=== PATIENT | male | born 1950 | race Caucasian/White ===

== ENCOUNTER → 2018-12-05 | Outpatient (CLI) | payer OTHER | LOC: ULTRA 10:16 | DX: I65.23 Occlusion and stenosis of bilateral carotid arteries (principal); R09.89 Other specified symptoms and signs involving the circulatory and respiratory systems ==

== ENCOUNTER → 2019-11-30 | Outpatient (CLI) | payer OTHER | LOC: SJCVC 11:16 | DX: I45.19 Other right bundle-branch block (principal); R94.31 Abnormal electrocardiogram [ECG] [EKG]; I10 Essential (primary) hypertension; I25.10 Atherosclerotic heart disease of native coronary artery without angina pectoris; E78.00 Pure hypercholesterolemia, unspecified; I65.23 Occlusion and stenosis of bilateral carotid arteries; M19.90 Unspecified osteoarthritis, unspecified site; Z79.82 Long term (current) use of aspirin; Z79.899 Other long term (current) drug therapy ==

== ENCOUNTER → 2020-04-15 | Outpatient (CLI) | payer OTHER | LOC: SJCVCIMAG 10:20 | PROVIDERS: ATTEND Internal Medicine Cardiovascular Disease | DX: I25.10 Atherosclerotic heart disease of native coronary artery without angina pectoris (principal); I45.10 Unspecified right bundle-branch block; E78.5 Hyperlipidemia, unspecified; I10 Essential (primary) hypertension; Z79.899 Other long term (current) drug therapy ==

== ENCOUNTER → 2020-04-24 | Outpatient (CLI) | payer OTHER | END | disposition home or self-care (01) | LOC: CATH 10:28 | DX: I25.10 Atherosclerotic heart disease of native coronary artery without angina pectoris (principal); I77.811 Abdominal aortic ectasia; I10 Essential (primary) hypertension; E78.5 Hyperlipidemia, unspecified; K21.9 Gastro-esophageal reflux disease without esophagitis; M19.90 Unspecified osteoarthritis, unspecified site; Z98.890 Other specified postprocedural states; Z79.899 Other long term (current) drug therapy ==

== ENCOUNTER → 2020-12-04 | Outpatient (CLI) | payer OTHER ==
[~2020-12-04] MED LIST: ASA81BEC PO; AVAPRO300 MG PO; FISH OIL 1,001000 M3 PO; LIPITOR80 MG PO; NEURONTIN300 MG PO; NORCO 10-325 T1 EACH PO; TOPROL XL25 MG PO
== END ==
LOC: SJCVC 11:15
PROVIDERS: ATTEND Internal Medicine Cardiovascular Disease
DX: I25.10 Atherosclerotic heart disease of native coronary artery without angina pectoris (principal); I10 Essential (primary) hypertension; E78.00 Pure hypercholesterolemia, unspecified; I65.23 Occlusion and stenosis of bilateral carotid arteries; M19.90 Unspecified osteoarthritis, unspecified site; Z98.890 Other specified postprocedural states; Z79.82 Long term (current) use of aspirin; Z79.899 Other long term (current) drug therapy; Z82.49 Family history of ischemic heart disease and other diseases of the circulatory system

== ENCOUNTER → 2021-07-16 | Outpatient (CLI) | payer OTHER | LOC: SJCVCIMAG 08:24 | PROVIDERS: ATTEND Internal Medicine Cardiovascular Disease | DX: I25.10 Atherosclerotic heart disease of native coronary artery without angina pectoris (principal); I10 Essential (primary) hypertension; E78.5 Hyperlipidemia, unspecified; Z95.1 Presence of aortocoronary bypass graft ==

== ENCOUNTER 2021-11-27 11:06 | Inpatient (IN) | payer OTHER ==
[~2021-11-27] VITALS: Ht 182.9 cm; Wt 66.7 kg
[2021-11-27] VITALS (14 sets, daily range): BP systolic 95–117; BP diastolic 44–76
[2021-11-27 11:24] LABS: ABSOLUTE NEUTROPHILS 4.3 thou/uL (1.4-8.2); BASOPHILS 0.8 % (0.0-2.0); EOSINOPHILS 2.4 % (0.0-3.0); HEMATOCRIT 29.9 % (42.0-52.0); HEMOGLOBIN 10.1 gm/dL (14.0-18.0); LYMPHOCYTES 18.9 % (24.0-44.0); MCH 32.4 pg (26.0-34.0); MCHC 33.8 g/dL (28.0-37.0); MCV 96.1 fL (80.0-100.0); MONOCYTES 15.2 % (1.0-8.0); PLATELET COUNT 156 thou/uL (150-400); POLYS 62.7 % (36.0-66.0); RBC 3.11 mil/uL (4.50-6.00); RDW 15.1 % (10.5-14.5); WBC 6.8 thou/uL (4.0-11.0)
[2021-11-27 11:34] LABS: CALCIUM 8.4 mg/dL (8.5-10.1); CREATININE 3.8 mg/dL (0.7-1.3); POTASSIUM 4.8 mmol/L (3.5-5.1)
--- NOTE | 2021-11-27 11:35 | EKG ---
[address] [address] ELECTROCARDIOGRAM REPORT Name: NABILA PARRISH Room #: [facility] M.R.#: [id number] Admission: Attend Phys: Discharge: Date of : 48 Report #: [id number] [facility] ED Test Date: 2021-11-27 Test Time: 11:08:34 Pat Name: NABILA PARRISH Department: Room: Gender: Supervisor Forming Department: POOJA : 1950 Requested By: Kiran Kaiser Order Number: [id number] MD: Michel Guillaume Measurements Intervals Morrill Rate: 73 P: -37 UT: 189 QRS: -40 QRSD: 106 T: 75 QT: 402 QTc: 443 Interpretive Statements Sinus rhythm Compared to ECG 04/24/2020 10:48:46 Electronically Signed On 11-27-2021 11:35:22 PLEATING SUPERVISOR by Michel Guillaume [email or web address] <ELECTRONICALLY SIGNED> By: Michel Guillaume MD 11/27/21 1135 1108 1108 Michel Guillaume MD /EPI
[2021-11-27 11:44] LABS: ALBUMIN 2.7 g/dL (3.4-5.0); TOTAL BILIRUBIN 1.8 mg/dL (0.2-1.0); TOTAL PROTEIN 6.1 g/dL (6.4-8.2)
[2021-11-27 14:18] LABS: URINE BLOOD 2+ (Negative); URINE CLARITY CLEAR; URINE COLOR YELLOW; URINE GLUCOSE-RANDOM* NEGATIVE (Negative); URINE KETONES NEGATIVE (Negative); URINE LEUKOCYTES-REFLEX NEGATIVE (Negative); URINE NITRITE-REFLEX NEGATIVE (Negative); URINE PROTEIN (DIPSTICK) 1+ (Negative); URINE SPECIFIC GRAVITY 1.025 (1.005-1.035)
[2021-11-27 14:20] LABS: ICTOTEST (BILI CONFIRMATORY) Negative (Negative); URINE BILIRUBIN NEGATIVE (Negative)
[2021-11-27 14:28] LABS: SQUAMOUS >10 Many /LPF (0-3); URINE WBC-REFLEX 6-15 Few /HPF (0-5)
[2021-11-27 14:29] LABS: COARSE GRANULAR CASTS 0-3 Few /LPF (None Seen); CRYSTALS None Seen /LPF (None Seen); HYALINE CASTS 0-3 Few /LPF (None Seen); URINE RBC 3-10 Few /HPF (NONE SEEN)
--- NOTE | 2021-11-27 14:54 | NUR ---
PATIENT CONSENT OBTAINED FOR CENTRAL LINE INSERTION. ALL QUESTIONS AND CONCERNS WERE ADDRESSED.
--- NOTE | 2021-11-27 15:54 | NUR ---
VAT CONSULTED FOR CVAD. DISCUSSED BENEFITS AND RISK WITH PT, VERBALIZED UNDERSTANDING. RIJ WAS WIDELY PATENT WITH USG. 6FR TL POWER JACC 25CM INSERTED TO 4CM EXTERNAL. PT TOLERATED WELL. STAT CXR ORDERED
--- NOTE | 2021-11-27 16:25 | NUR ---
ATTEMPTED TO CALL ICU POD 2 X2 AT THIS TIME, NO ANSWER
[2021-11-27] MEDS ORDERED: IRBESARTAN300 MG PO (16:56)
[2021-11-27] MEDS ORDERED: METOPROLOL SUCC25 M1 PO (16:56)
[2021-11-27] MEDS ORDERED: NEURONTIN 300M300 M2 PO (16:56)
[2021-11-27] MEDS ORDERED: ATORVASTATIN CA80 MG PO (16:56)
[2021-11-27 18:39] LABS: FOLIC ACID 3.2 ng/mL (8.6-58.9)
--- NOTE | 2021-11-27 19:04 | NUR ---
CXR CONFIRMED PLACEMENT. CVAD RELEASED FOR IMMEDIATE USE PER PROTOCOL
[2021-11-27 19:09] LABS: % SATURATION 53 % (20-39); IRON 74 ug/dL (65-175); TIBC 139 ug/dL (250-450)
--- NOTE | 2021-11-27 19:40 | NUR ---
PT HAS SMALL BLANCHABLE REDNESS TO COCCYX. PICTURE IN CHART. EDUCATED TO TURN FREQUENTLY, AT LEAST EVERY 2 HOURS IN THE BED
[2021-11-28] VITALS (75 sets, daily range): BP systolic 77–128; BP diastolic 44–77
[2021-11-28 05:48] LABS: CALCIUM 8.4 mg/dL (8.5-10.1); MAGNESIUM 2.4 mg/dL (1.8-2.4); POTASSIUM 5.1 mmol/L (3.5-5.1)
[2021-11-28 05:49] LABS: BASOPHILS 1.1 % (0.0-2.0); EOSINOPHILS 2.4 % (0.0-3.0); HEMATOCRIT 28.5 % (42.0-52.0); HEMOGLOBIN 9.9 gm/dL (14.0-18.0); LYMPHOCYTES 14.5 % (24.0-44.0); MCHC 34.6 g/dL (28.0-37.0); MCV 95.5 fL (80.0-100.0); PLATELET COUNT 172 thou/uL (150-400); RBC 2.99 mil/uL (4.50-6.00); RDW 15.1 % (10.5-14.5); WBC 7.2 thou/uL (4.0-11.0)
[2021-11-28 05:50] LABS: CREATININE 2.6 mg/dL (0.7-1.3)
--- NOTE | 2021-11-28 11:10 | NUR ---
REFER TO OT VARIANCE
[2021-11-29] VITALS (74 sets, daily range): BP systolic 83–123; BP diastolic 41–66
--- NOTE | 2021-11-29 00:33 | 2DMMODE ---
[facility] [place] [address] 2 D/M-MODE ECHOCARDIOGRAM Name: NABILA PARRISH Room #: 243-P ADM IN M.R.#: [id number] Admission: 11/27/21 Attend Phys: Prince Rayo MD Discharge: Date of : 48 Report #: [id number] THIS REPORT FOR: cc: Ross Rhodes MD, Michael S. MD Lammoglia, Francisco J. MD ~ APPROVED REPORT Study performed: 11/28/2021 09:28:31 EXAM: Comprehensive 2D, Doppler, and color-flow Echocardiogram Patient Location: ICU Room #: 243 Status: on-call BSA: 1.88 HR: 83 bpm BP: 100/48 mmHg Rhythm: NSR/arrhythmia Other Information Study Quality: Adequate Indications Dyspnea Hx: CAD, PCI, HTN, HLP. 2D Dimensions RVDd: 26.19 mm IVSd: 8.37 (7-11mm) LVDd: 41.76 mm PWd: 9.30 (7-11mm) LVDs: 30.91 (25-40mm) Left Atrium: 28.53 (27-40mm) Aortic Root: 36.21 mm Volumes Left Atrial Volume (Systole) Single Plane 4CH: 23.89 mL Single Plane 2CH: 45.93 mL LA ESV Index: 19.00 mL/m2 Aortic Valve AoV Peak Octavio.: 1.22 m/s AO Peak Gr.: 5.99 mmHg LVOT Max P.01 mmHg LVOT Max V: 0.87 m/s [facility] X[employer] [address] [place] [address] 2 D/M-MODE ECHOCARDIOGRAM Name: FRANCOISNABILA DYE Room #: 243-P [facility] IN M.R.#: [id number] Admission: 11/27/21 Attend Phys: Prince Rayo, Discharge: Date of : 48 Report #: [id number] Mitral Valve E/A Ratio: 0.7 MV Decel. Time: 337.08 ms MV E Max Octavio.: 0.54 m/s MV A Octavio.: 0.75 m/s MV PHT: 97.75 ms IVRT: 92.27 ms Tricuspid Valve TR Peak Octavio.: 2.53 m/s TR Peak Gr.: 26.00 mmHg Left Ventricle The left ventricle is normal size. There is normal LV segmental wall motion. There is normal left ventricular wall thickness. Left ventricular systolic function is normal. LVEF is 60-65%. Mild diastolic dysfunction is present (impaired relaxation pattern). Right Ventricle The right ventricle is normal size. The right ventricular systolic function is normal. Atria The left atrium size is normal. The right atrium size is normal. Aortic Valve The aortic valve is normal in structure; mildly calcified. No aortic regurgitation is present. There is no aortic valvular stenosis. Mitral Valve The mitral valve is normal in structure. Trace mitral regurgitation. Tricuspid Valve The tricuspid valve is normal in structure. Trace tricuspid regurgitation. Estimated PAP is 26mmHg plus the right atrial pressure. Pulmonic Valve Pulmonic valve is not well visualized. Great Vessels [facility] [address] [place] [address] 2 D/M-MODE ECHOCARDIOGRAM Name: NABILA PARRISH Room #: 243-P [facility] IN ..#: [id number] Admission: 11/27/21 Attend Phys: Prince Rayo, Discharge: Date of : 48 Report #: [id number] The aortic root is normal in size. Ascending aorta is not well visualized. IVC is not well visualized. Pericardium There is no pericardial effusion. <Conclusion> The left ventricle is normal size. LVEF is 60-65%. The right ventricle is normal size. The left atrium size is normal. The aortic valve is normal in structure; mildly calcified. The mitral valve is normal in structure. Trace mitral regurgitation. The tricuspid valve is normal in structure. Trace tricuspid regurgitation. Estimated PAP is 26mmHg plus the right atrial pressure. Pulmonic valve is not well visualized. The aortic root is normal in size. There is no pericardial effusion. <ELECTRONICALLY SIGNED> By: Berto Marsh MD 11/29/21 0033 003 0033 Berto Marsh MD /INF
[2021-11-29 10:36] LABS: ALBUMIN 2.4 g/dL (3.4-5.0); CALCIUM 7.9 mg/dL (8.5-10.1); CREATININE 1.9 mg/dL (0.7-1.3); PHOSPHORUS 2.7 mg/dL (2.5-4.9); POTASSIUM 4.6 mmol/L (3.5-5.1)
[2021-11-30] VITALS (107 sets, daily range): BP systolic 68–114; BP diastolic 41–64
[2021-11-30 11:02] LABS: HEMATOCRIT 24.7 % (42.0-52.0); HEMOGLOBIN 8.3 gm/dL (14.0-18.0); MCH 32.3 pg (26.0-34.0); MCHC 33.7 g/dL (28.0-37.0); MCV 95.7 fL (80.0-100.0); RBC 2.59 mil/uL (4.50-6.00); RDW 15.2 % (10.5-14.5); WBC 5.8 thou/uL (4.0-11.0)
[2021-11-30 11:44] LABS: ALBUMIN 2.1 g/dL (3.4-5.0); CREATININE 1.4 mg/dL (0.7-1.3); PHOSPHORUS 2.4 mg/dL (2.6-4.7); POTASSIUM 4.4 mmol/L (3.5-5.1)
--- NOTE | 2021-11-30 14:41 | NUR ---
71-year-old male with a history of HTN, CAD, cardiac stents x3, history. Patient arrived to [facility] ED via EMS with complaint of general weakness and debility. Patient reports his weakness started about 3 weeks ago and has gotten worse. Patient reports poor appetite, shortness of air and chest pain. CT of abdomen showed urinary bladder distention, suggesting possible acute urinary retention, findings suggestive for possible cholecystitis, and has Goodman Cath placed. Low BP and was placed on Levo . Currently levo discontinued and started on Midodrine. Discussed during unit rounds with the pulmonary MD and during los with the attending physician. Possible going for heart Cath tomorrow. CM spoke with patient spouse Comfort # [phone] and son Gonzalez # [phone]. Gonzalez is staying with his mom while patient in the hospital. Patient has another son Sravan Boland # [phone], if cant reach patients his or son Gonzalez. Education on discharge planning, home health and rehab. Patient lives at home with Comfort, has stairs at home. Independent prior to his falls recently, bought him a fww. Manage own medication and drives a vehicle. No hh or rehab in the past. PCP Dr Rhodes. Will con,t following as needed, will need to see how patient does working with therapy when he is medical stable for therapy.
--- NOTE | 2021-11-30 14:52 | NUR ---
PT WHEN SITTING AT EDGE OF BED WITH OT PT HAD HAD SOME ORTHOSTATIC HYPOTENSION 68/[address] BACK IN BED BP 94/51. PT PLACE IN A SEMI HAMILTON POSITION AND BP WAS MAINTAINED.
[2021-12-01] VITALS (35 sets, daily range): BP systolic 79–109; BP diastolic 44–61
[2021-12-01 04:33] LABS: HEMATOCRIT 25.3 % (42.0-52.0); HEMOGLOBIN 8.4 gm/dL (14.0-18.0); RBC 2.61 mil/uL (4.50-6.00); WBC 6.9 thou/uL (4.0-11.0)
[2021-12-01 04:42] LABS: ALBUMIN 2.1 g/dL (3.4-5.0); CALCIUM 7.6 mg/dL (8.5-10.1); CREATININE 1.3 mg/dL (0.7-1.3); POTASSIUM 4.3 mmol/L (3.5-5.1); TOTAL BILIRUBIN 1.3 mg/dL (0.2-1.0)
[2021-12-02 04:00] VITALS: BP 115/68
--- NOTE | 2021-12-02 04:39 | NUR ---
NURSING NOTE; SHIFT SUMMARY: PT ALERT AND ORIENTED X3; MOVES ALL EXTREMITIES AND FOLLOWS COMMANDS. CURRENTLY RESTING WITH EYES CLOSED, RESP EVEN AND NON LABORED. DENIES PAIN. ALL VS AND ASSESSMENTS CHARTED. WILL CONTINUE TO MONITOR.
[2021-12-02 07:31] VITALS: BP 121/76
[2021-12-02 09:25] LABS: HEMATOCRIT 24.8 % (42.0-52.0); HEMOGLOBIN 8.3 gm/dL (14.0-18.0); MCH 32.6 pg (26.0-34.0); MCHC 33.6 g/dL (28.0-37.0); MCV 96.8 fL (80.0-100.0); RBC 2.56 mil/uL (4.50-6.00); RDW 15.5 % (10.5-14.5); WBC 6.5 thou/uL (4.0-11.0)
[2021-12-02 09:39] LABS: ALBUMIN 2.2 g/dL (3.4-5.0); CALCIUM 7.7 mg/dL (8.5-10.1); CREATININE 1.1 mg/dL (0.7-1.3); POTASSIUM 3.7 mmol/L (3.5-5.1); TOTAL PROTEIN 5.2 g/dL (6.4-8.2)
[2021-12-02 11:52] VITALS: BP 112/70
[2021-12-02 15:29] VITALS: BP 89/54
--- NOTE | 2021-12-02 16:21 | CATHLAB ---
[facility] [address] [place] [address] INVASIVE PROCEDURE REPORT Name: NABILA PARRISH Room #: 216-P ADM IN M.R.#: [id number] Admission: 11/27/21 Attend Phys: Prince Rayo MD Discharge: Date of : 48 Report #: [id number] THIS REPORT FOR: cc: Ross Rhodes MD, Michael S. MD Mancuso, Gerald M. MD [facility] ~ APPROVED REPORT Study performed: 12/01/2021 08:27:39 Patient Details Patient Status: In-Patient Room #: 243 The patient is a 71 year-old male Event Personnel Ab Phillips Affiliate Marketing Coordinator, Elizabeth Huerta RTR Monitor, Riley Wilks RTR ScrubBakari Mitch RN RN, Chato Francois RN data collection technician Performed Art Access - R femoral artery* Souleymane Access - R femoral vein Right and Left Heart Cath w/or w/o Coronarie [id number] [facility] Aortogram Abdominal Peripheral Angio 561093 Hemostasis w/ Mynx Hemostasis with Manual pressure 80419 Initial Mod Sed Same Phys/QHP Gr5y 933041 34242 Mod Sed Same Phys/QHP Ea 130367 Procedure Narrative The Right Groin^ was infiltrated with 1% Lidocaine subcutaneous anesthesia. A PINNACLE 6FR Sheath #[id number] sheath was inserted into the RFA. Coronary angiography was performed using coronary diagnostic catheters. The right coronary system was accessed and visualized with a JR4 catheter. The left coronary system was accessed and visualized with a JL4 catheter. The left ventricle was accessed and visualized with a PIGTAIL catheter. Left ventriculogram was performed in 30 degree projection. An aortogram of the abdominal aorta was performed. Pre-demployment femoral angiogram was performed . Closure device was deployed with a Fr MYNXGRIP 6/7F #[id number]. The patient tolerated the procedure well and there were no complications associated with the procedure. There was no hematoma. Intraoperative Conscious Sedation Sedation start time: 8:35 Case end Time: 9:10 Fentanyl 25 mcg Versed [address] [address] INVASIVE PROCEDURE REPORT Name: NABILA PARRISH Room #: 216-P [facility] IN ..#: [id number] Admission: 11/27/21 Attend Phys: Prince Rayo, Discharge: Date of : 48 Report #: [id number] Fluoro Time: 3.00 minutes Dose: DAP 2179.20 cGycm2 201 mGy Contrast Type and Amount: Visipaque 90 ml Hemodynamics The right atrial mean pressure is 6 mmHg. The right ventricular pressure is 30/-3 mmHg. The pulmonary artery pressure is 31/11 mmHg with a mean of 17 mmHg. The mean pulmonary capillary wedge pressure is 10 mmHg. The aortic pressure is 107/48 mmHg with a mean of 53 mmHg. The left ventricular pressure is 101/-1 mmHg with a mean of mmHg. The left ventricular end diastolic pressure is 10 mmHg. The cardiac output using thermo method is 4.25 L/min. The cardiac index using thermo method is 2.27 L/min/m2. Conclusion #1 Successful right heart catheterization with cardiac output by thermodilution. See above hemodynamics. #2 normal left ventricular size and systolic function EF 60%. #3 abdominal aortogram shows significant tortuosity of the abdominal aorta but no aneurysm. #4 left main with mild irregularity giving rise to LAD and circumflex. #5 LAD with proximal calcification and mild to moderate diffuse disease a smaller atretic vessel at the apex. But no high-grade occlusive disease for intervention. #6 circumflex OM nondominant with mild disease. #7 dominant right coronary artery with multiple areas of proximal and mid vessels prior stenting widely patent. There is a distal eccentric lesion of 60 to 70% proximal to the bifurcation of the PDA GUERA which are preserved. This does not appear flow-limiting and not recommending intervention at this time. Will follow noninvasively. Recommendations and plan: Continue aggressive risk factor modification there is no indication for coronary intervention. Will follow for inferior wall ischemia. Patient significantly anemic on this hospitalization. No indication for intervention currently. <ELECTRONICALLY SIGNED> By: Ab Phillips MD, FACC 12/02/211620 20 20 Ab Phillips MD, FACC /INF
--- NOTE | 2021-12-02 16:31 | NUR ---
CHART REVIEWED AND DISCUSSED WITH CARE TEAM. CM CALLED TO SPEAK TO PTS FRANK VIA PHONE. FRANK INSTUCTED SHE JUST GOT OFF THE PHONE WITH THERAPY WHO INDICATED PT REMAINS UNABLE TO WORK WITH THERAPY AT THIS TIME R/T TO BP DROPPING. PT HAS VARIANCED X2 R/T BP. PTS MENTIONED THERAPY RECOMMEND REHAB HERE AT [facility] DC PLAN ONCE MEDICALLY STABLE. PTS INSTRUCTS PT WILL NOT BE AGREEABLE TO SNF AND IF CANNOT GO TO REHAB HERE WOULD LIKE TO DC HOME WITH HH. DOES NOT HAVE A CHOICE IN HH SERVICE PROVIDER. CM REACHED OUT TO [facility] AND AWAITING EVAL. CM WILL CONTINUE TO FOLLOW FOR DC PLANNING.
--- NOTE | 2021-12-02 18:35 | NUR ---
Patient resting in bed, blood pressure drop when sit up in bed. Pain med given prn. RN gave a pain pill 30 mins earlier due to patient back pain and heart rate is tachy. Call light within reach, will continous monitoring.
[2021-12-02 19:29] VITALS: BP 103/55
--- NOTE | 2021-12-03 02:40 | NUR ---
PT BEEN RESTING IN NO ACUTE DISTRESS.A/OX4.VSS.NO EPISODES OF ORTHOSTATIC HYPOTENSION THIS SHIFT SO FAR.PT MEDICATED WITH PAIN MEDS FOR C/O BACK AND HIPS PAIN WITH PARTIAL RELIEF THOUGH TOLERABLE PER PT.BARRETT ARREDONDO.PT PROGRESSING SLOWLY TO DISCHARGE GOALS.C/O CONSTIPATION,OFFERED MIRALAX BUT DECLINED,ABD ON ASSESSMENT SOFT,NON-DISTENDED,BS+VEX 4QUADS,POSITIVE FLATUS.PT INSTRUCTED TO NOTIFY STAFF IF NEEDS MIRALAX.NO OTHER CONCERNS VOICED.ASSESSMENT COMPLETED DOCUMENTED.
[2021-12-03 05:20] LABS: HEMATOCRIT 23.1 % (42.0-52.0); HEMOGLOBIN 7.7 gm/dL (14.0-18.0); MCH 31.9 pg (26.0-34.0); MCHC 33.4 g/dL (28.0-37.0); MCV 95.6 fL (80.0-100.0); RBC 2.41 mil/uL (4.50-6.00); RDW 15.3 % (10.5-14.5); WBC 5.6 thou/uL (4.0-11.0)
[2021-12-03 05:22] LABS: CALCIUM 7.5 mg/dL (8.5-10.1); CREATININE 0.9 mg/dL (0.7-1.3); POTASSIUM 3.4 mmol/L (3.5-5.1)
[2021-12-03 05:24] VITALS: BP 115/55
[2021-12-03 07:13] VITALS: BP 118/70
[2021-12-03 11:12] VITALS: BP 103/60
[2021-12-03 15:58] VITALS: BP 109/64
--- NOTE | 2021-12-03 16:08 | NUR ---
[facility] FOLLOWING. THEY INDICATED THAT PT HASN'T PARTICIAPTED ENOUGH WITH THERAPY TO DATE FOR THEM TO PROPRTLY ASSESS FOR POAAIBLE ADMISSION. CM NOTIFIED HOSPITALIST. CM FOLLOWING.
--- NOTE | 2021-12-03 17:40 | NUR ---
I have reviewed the documentation by MG SANTIAGO from 12/03/2021 to 12/03/21 and I concur with it. VIOLETA GREER PT, DPT
[2021-12-03 19:51] VITALS: BP 128/78
--- NOTE | 2021-12-04 02:18 | NUR ---
UPON INITIAL ASSESSMENT PATIENT DOUBLED OVER IN PAIN 10/10 IN RIGHT UPPER QUADRANT OF ABDOMEN. CALL PLACED TO LEATHER CUTTER TO ALERT OF FINDINGS AND REQUEST PAIN MEDICATION. PATIENTS PAIN ONLY MITIGATED FOR HOUR POST PRN IV PAIN MEDICATION. LATER IN SHIFT FURTHER CALL PLACED TO GI SERVICE WITH ORDERS GIVEN FOR LABS. LEATHER CUTTER CAME TO UNIT TO PERSONALLY ASSESS PATIENT WITH ORDERS GIVEN FOR NPO AND STAT CT OF ABDOMEN WHICH REVEAL ACUTE CHOLECYSTITIS. PATIENT ALSO HAD NOT VOIDED SINCE SHIFT CHANGE. BLADDER SCAN REVEALED 346 CC'S OF URINE IN BLADDER WITH PATIENT COMPLAINING THAT HE'S "IN TOO MUCH PAIN TO PEE!" ORDER RECEIVED FOR STRAIGHT CATH TIMES ONE. NURSE TO CONTINUE TO MONITOR.
[2021-12-04 04:22] VITALS: BP 137/84
[2021-12-04 04:55] LABS: HEMATOCRIT 23.2 % (42.0-52.0); HEMOGLOBIN 7.9 gm/dL (14.0-18.0); MCH 32.4 pg (26.0-34.0); MCHC 34.2 g/dL (28.0-37.0); MCV 94.9 fL (80.0-100.0); RBC 2.44 mil/uL (4.50-6.00); RDW 15.5 % (10.5-14.5); WBC 11.3 thou/uL (4.0-11.0)
[2021-12-04 05:23] LABS: ALBUMIN 2.5 g/dL (3.4-5.0); CALCIUM 7.9 mg/dL (8.5-10.1); POTASSIUM 3.4 mmol/L (3.5-5.1); TOTAL PROTEIN 5.4 g/dL (6.4-8.2)
[2021-12-04 06:00] LABS: DIRECT BILIRUBIN 2.8 mg/dL (<0.1-0.2)
[2021-12-04 07:50] VITALS: BP 131/66
--- NOTE | 2021-12-04 09:51 | NUR ---
PLEASE SEE OT VARIANCE. OT WILL NEED NEW EVAL ORDERS AFTER SURGERY TODAY
[2021-12-04 11:40] VITALS: BP 130/66
--- NOTE | 2021-12-04 12:52 | NUR ---
CARE TEAM INDICATED THAT SURGERY WAS CONSULTED REALTED TO PT'S GALBLADDER. AWAITING CONSULT. 5N FOLLOWING. PT WILL NEED TO BE ASSESSED AGAIN BY PT AND OT FOLLOWING POSSIBLE PROCEDURE TO DETERMINE POSSIBLE POST ACUTE CARE NEEDS.
[2021-12-04 15:30] VITALS: BP 131/78
--- NOTE | 2021-12-04 17:08 | NUR ---
[facility]/ACUTE REHAB CAN ACCEPT PATIENT FOR REHAB STAY WHEN MEDICAL READY AND ABLE TO TOLERATE THERAPY FOR 3 HOURS A DAY.
[2021-12-04 20:15] VITALS: BP 126/65
[2021-12-05 04:43] LABS: HEMATOCRIT 24.6 % (42.0-52.0); HEMOGLOBIN 8.4 gm/dL (14.0-18.0); MCH 32.1 pg (26.0-34.0); MCHC 34.2 g/dL (28.0-37.0); RBC 2.62 mil/uL (4.50-6.00); RDW 15.6 % (10.5-14.5); WBC 24.3 thou/uL (4.0-11.0)
[2021-12-05 04:45] VITALS: BP 120/74
[2021-12-05 04:46] LABS: POTASSIUM 3.1 mmol/L (3.5-5.1)
[2021-12-05 04:48] LABS: ALBUMIN 2.2 g/dL (3.4-5.0); TOTAL PROTEIN 4.7 g/dL (6.4-8.2)
[2021-12-05 05:09] LABS: TOTAL BILIRUBIN 7.9 mg/dL (0.2-1.0)
--- NOTE | 2021-12-05 06:13 | NUR ---
ASSUMED CARE OF PATIENT AT 1900. PT C/O RIGHT UPPER QUADRANT ABDOMINAL PAIN, MINIZED WITH MORPHINE IV. REFLUX IMPROVED WITH ZOFRAN IV. SURGERY CONSENT SIGNED FOR AM SURGERY. PT CONTINUES TO BE NPO. MORNING LABS REVEALED LOW K+, ORDERS PLACED AND WILL BEGIN TO REPLACE WHEN APPROVED BY PHARM. WILL CONTINUE TO MONITOR.
[2021-12-05 08:06] VITALS: BP 132/70
[2021-12-05 11:50] VITALS: BP 122/62
[2021-12-05 15:26] VITALS: BP 113/62
[2021-12-05 20:15] VITALS: BP 117/67
[2021-12-06 00:45] VITALS: BP 119/66
[2021-12-06 04:45] VITALS: BP 123/60
[2021-12-06 05:26] LABS: HEMATOCRIT 21.8 % (42.0-52.0); HEMOGLOBIN 7.3 gm/dL (14.0-18.0); MCH 31.7 pg (26.0-34.0); MCHC 33.3 g/dL (28.0-37.0); MCV 94.9 fL (80.0-100.0); RBC 2.3 mil/uL (4.50-6.00); RDW 16.3 % (10.5-14.5); WBC 20.4 thou/uL (4.0-11.0)
[2021-12-06 05:38] LABS: INR 1.12; PROTIME 12.1 Seconds (10.5-12.1)
[2021-12-06 05:41] LABS: ALBUMIN 1.8 g/dL (3.4-5.0); CALCIUM 7.6 mg/dL (8.5-10.1); CREATININE 1.2 mg/dL (0.7-1.3); POTASSIUM 3.3 mmol/L (3.5-5.1)
[2021-12-06 05:54] LABS: TOTAL BILIRUBIN 7.6 mg/dL (0.2-1.0)
--- NOTE | 2021-12-06 06:00 | NUR ---
Patient making slow progress towards outcome goals, Hydrocodone and Morphine given for low backpain and abdominal pain with relief. Urine output marginal, dark concentrated, IVFluids infusing, ranned independent of IV antibiotics. Lap sites clean dry and intact.
[2021-12-06 08:10] VITALS: BP 137/76
[2021-12-06 11:46] VITALS: BP 138/80
[2021-12-06 15:27] VITALS: BP 132/72
[2021-12-06 20:00] VITALS: BP 136/60
[2021-12-07 00:05] LABS: HAV IgM AB (ANTI-HAV IgM) Negative (Negative); HEPATITIS B SURFACE AG Negative (Negative)
[2021-12-07 04:00] VITALS: BP 130/61
[2021-12-07 06:06] LABS: ALBUMIN 1.7 g/dL (3.4-5.0); CALCIUM 7.8 mg/dL (8.5-10.1); CORRECTED WBC 13.9 thou/uL (4.0-11.0); CREATININE 1.1 mg/dL (0.7-1.3); HEMATOCRIT 18.8 % (42.0-52.0); HEMOGLOBIN 6.5 gm/dL (14.0-18.0); MCH 32.7 pg (26.0-34.0); MCHC 34.6 % (28.0-37.0); MCV 94.5 fL (80.0-100.0); POTASSIUM 3.3 mmol/L (3.5-5.1); RBC 1.99 mil/uL (4.50-6.00); RDW 16.5 % (10.5-14.5); TOTAL BILIRUBIN 2.6 mg/dL (0.2-1.0); TOTAL PROTEIN 4.9 g/dL (6.4-8.2); WBC 13.9 thou/uL (4.0-11.0)
[2021-12-07 06:07] LABS: LYMPHOCYTES 2.3 % (24.0-44.0); MONOCYTES 7.4 % (1.0-8.0); PLATELET COUNT 255 thou/uL (150-400); POLYS 90.2 % (36.0-66.0)
[2021-12-07 06:08] LABS: ABSOLUTE NEUTROPHILS 12.6 thou/uL (1.4-8.2); BASOPHILS 0.1 % (0.0-2.0)
[2021-12-07 08:38] LABS: HEPATITIS C VIRUS AB <0.1
[2021-12-07 09:00] VITALS: BP 151/65
[2021-12-07 10:05] VITALS: BP 125/61; BP 132/59
--- NOTE | 2021-12-07 14:34 | NUR ---
CHART REVIEWED AND DISCUSSED WITH CARE TEAM. PT S/P LAP ROXANA AND CONTINUE IV ABTS. CM CONTINUE TO FOLLOW FOR DC PLANNING. UNABLE TO MAKE DC RECOMMENDATIONS AT THIS TIME R/T CONTINUED PT/OT VARIENCE AND NOT BEING ABLE TO SEE PT. 5N CONTINUE TO MONTIOR FOR PT/OT EVALS AND ACCEPTANCE. CM FOLLOWING.
[2021-12-07 14:55] LABS: HEMATOCRIT 21.9 % (42.0-52.0); HEMOGLOBIN 7.5 gm/dL (14.0-18.0); MCH 31.7 pg (26.0-34.0); MCHC 34.2 g/dL (28.0-37.0); MCV 92.7 fL (80.0-100.0); RBC 2.37 mil/uL (4.50-6.00); RDW 16.3 % (10.5-14.5); WBC 13.1 thou/uL (4.0-11.0)
[2021-12-07 16:00] VITALS: BP 123/68
--- NOTE | 2021-12-07 17:11 | NUR ---
ASSUMED CARE OF PATIENT AT 0700. PAT A&OX4, ON 2LNC, NSR ON TELE, NO C/O PAIN. ACHS ORDERED, AND DOCUMENTED OBTAINED, NO INSULIN ORDERED. RIGHT IJ FLUSHED AND BLOOD PULLED BACK, NUMEROUS LABS OBTAINED. 4 LAP SITES CDI. POTASSIUM 3.3 THIS MORNING REPLACED WITH PO POTASSIUM AND TO BE RECHECKED IN THE AM. 1 PRBC GIVEN TO PATIENT WITH A 6.5 HGB, HGB 7.5 AFTER INFUSION. PATIENT PROGRESSING TOWARD POC.
[2021-12-07 19:21] VITALS: BP 132/80
--- NOTE | 2021-12-07 21:53 | NUR ---
PT ALERT X4. VSS AFEBRILE. NO C/O PAIN PRESENTLY AFTER TYLRNOL GIVEN BY DAY SHIFT. NO S/S DISTRESS.
--- NOTE | 2021-12-11 11:23 | PATH ---
[facility] [place] [address] PATHOLOGY RPT PROCEDURE Name: NABILA PARRISH HARDIK Room #: 216-P [facility] IN M.R.#: [id number] Admission: 11/27/21 Date of : 48 Discharge: 12/08/21 Report #: [id number] Path Case #: [id number] [facility] Accession Number: [id number] . 01 Material submitted: . gallbladder - GALLBLADDER . 01 Clinical history: . LAPARSCOPIC CHOLECYSTECTOMY WITH G . 02 Diagnosis: Gallbladder, cholecystectomy: - Acute cholecystitis without cholelithiasis. . (ANK:lindy; 12/09/2021) [facility] 12/09/2021 1137 Local . 02 Electronically signed: . Sweta Rojas MD, Pathologist NPI- [id number] . 01 Gross description: . Fixative: Formalin Labeled: Gallbladder Specimen received: Previously opened gallbladder Dimensions: 8.5 x 4.7 x 2.7 cm Serosa: Green-sheridan, smooth and wrinkled to slightly roughened Lymph node: No identified Mucosa: Black-brown, velvety Average wall thickness: 0.7 cm Calculi: None present within the specimen or specimen container Abnormalities: Areas of thickened wall measuring up to 1.7 cm . A1- County Engineer body, fundus, and the cystic duct margin. A2-A3 -Additional artist representative sections of thickened wall ([facility]; 12/08/2021) NRI/NRI 12/08/2021 1500 Local . 02 Pathologist provided ICD-10: K81.0 . 02 CPT . 336481 Specimen Comment: A courtesy copy of this report has been sent to [phone] Specimen Comment: Report sent to Specimen Comment: A duplicate report has been generated due to demographic updates. [address] [address] PATHOLOGY RPT PROCEDURE Name: NABILA PARRISH Room #: 216-P [facility] IN M.R.#: [id number] Admission: 11/27/21 Date of : 48 Discharge: 12/08/21 Report #: [id number] Path Case #: [id number] Performed at: 01 [facility] [address] [facility] [address], [place] [address] MD Raheel Skaggs MD Phone: [phone] Performed at: 02 [facility] [place] [id number] MD Sweta Rojas MD Phone: [phone]
== END 2021-12-08 | DRG 853 ==
LOC: ER 11:06 → EROBS 15:05 → ICU 15:05 → 2N 12-01 21:00
PROVIDERS: Emergency Medicine; Hospitalist; Internal Medicine; Internal Medicine Nephrology; Nurse Practitioner; Nurse Practitioner Adult Health; Specialist; ADMIT Internal Medicine; ATTEND Internal Medicine
PROC: 02HV33Z Insertion of Infusion Device into Superior Vena Cava, Percutaneous Approach (ICD-10-PCS; principal; 2021-11-27)
PROC: B215YZZ Fluoroscopy of Left Heart using Other Contrast (ICD-10-PCS; 2021-12-01)
PROC: B211YZZ Fluoroscopy of Multiple Coronary Arteries using Other Contrast (ICD-10-PCS; 2021-12-01)
PROC: B41FYZZ Fluoroscopy of Right Lower Extremity Arteries using Other Contrast (ICD-10-PCS; 2021-12-01)
PROC: B410YZZ Fluoroscopy of Abdominal Aorta using Other Contrast (ICD-10-PCS; 2021-12-01)
PROC: 4A023N8 Measurement of Cardiac Sampling and Pressure, Bilateral, Percutaneous Approach (ICD-10-PCS; 2021-12-01)
PROC: 0FT44ZZ Resection of Gallbladder, Percutaneous Endoscopic Approach (ICD-10-PCS; 2021-12-05)
PROC: BF101ZZ Fluoroscopy of Bile Ducts using Low Osmolar Contrast (ICD-10-PCS; 2021-12-05)
PROC: 30233N1 Transfusion of Nonautologous Red Blood Cells into Peripheral Vein, Percutaneous Approach (ICD-10-PCS; 2021-12-07)
DX: A41.9 Sepsis, unspecified organism (principal); R65.21 Severe sepsis with septic shock; I21.4 Non-ST elevation (NSTEMI) myocardial infarction; J96.00 Acute respiratory failure, unspecified whether with hypoxia or hypercapnia; K85.90 Acute pancreatitis without necrosis or infection, unspecified; N13.8 Other obstructive and reflux uropathy; K80.00 Calculus of gallbladder with acute cholecystitis without obstruction; R17 Unspecified jaundice; N17.9 Acute kidney failure, unspecified; Z68.1 Body mass index [BMI] 19.9 or less, adult; Z20.822 Contact with and (suspected) exposure to COVID-19; M19.90 Unspecified osteoarthritis, unspecified site; E87.6 Hypokalemia; I25.10 Atherosclerotic heart disease of native coronary artery without angina pectoris; Z66 Do not resuscitate; N18.30 Chronic kidney disease, stage 3 unspecified; D52.9 Folate deficiency anemia, unspecified; I12.9 Hypertensive chronic kidney disease with stage 1 through stage 4 chronic kidney disease, or unspecified chronic kidney disease; D51.9 Vitamin B12 deficiency anemia, unspecified; K62.89 Other specified diseases of anus and rectum; R26.9 Unspecified abnormalities of gait and mobility; K21.9 Gastro-esophageal reflux disease without esophagitis; I08.1 Rheumatic disorders of both mitral and tricuspid valves; I95.1 Orthostatic hypotension; Z74.09 Other reduced mobility; R74.01 Elevation of levels of liver transaminase levels; N40.1 Benign prostatic hyperplasia with lower urinary tract symptoms; R33.8 Other retention of urine; R53.81 Other malaise; N32.89 Other specified disorders of bladder; E78.5 Hyperlipidemia, unspecified; Z95.5 Presence of coronary angioplasty implant and graft; Z79.899 Other long term (current) drug therapy; Z79.82 Long term (current) use of aspirin; Z86.018 Personal history of other benign neoplasm; Z80.0 Family history of malignant neoplasm of digestive organs; I25.2 Old myocardial infarction
CPT/HCPCS: 10078; 10081; 10797; 50010; 50101; 50411; 50555; 51297; 51489; 52265; 52266; 53307; 53312; 53314; 55245; 55317; 56462; 56525; 56526; 58574; 62110; 62900; 70005